=== PATIENT | male | born 1965 | race Two or more races ===

== ENCOUNTER 2016-08-20 09:44 | Emergency (ER) | payer MEDICAID ==
[~2016-08-20] VITALS: Ht 165.1 cm; Wt 71.7 kg
--- NOTE | 2016-08-20 09:50 | NUR ---
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 NOTED COMPLAINING OF EXTREME PAIN. SEEN BY MD FOR EVAL. IV ACCESS STARTED. PT MEDICATED ORDERED. VSS. SAFETY AND COMFORT MEASURES PROVIDED. WILL MONITOR.
[2016-08-20] MEDS ORDERED: ONDANSETRON HCL/PF 4 MG/2 ML VIAL ONE (09:54)
[2016-08-20] MEDS ORDERED: IV NS 0.9% 1,000 ML ONE (09:54)
[2016-08-20] MEDS ORDERED: HYDROMORPHONE 1 MG/1 ML DISP.SYRIN ONE ×2 (09:54→10:13)
[2016-08-20] MEDS ORDERED: IV SET PRIMARY PUMP SET 1 EA INFUS.SET MC ONE (09:54)
[2016-08-20 10:00] LABS: BASOPHILS % (AUTO) 0.5 % (0.0-2.0); EOSINOPHILS # (AUTO) 0.5 /CMM (0.0-0.7); EOSINOPHILS % (AUTO) 5.7 % (0.0-6.0); HEMATOCRIT 52 % (39-51); HEMOGLOBIN 17.2 g/dL (13.5-17.5); LYMPHOCYTES # (AUTO) 2.5 /CMM (0.8-4.8); LYMPHOCYTES % (AUTO) 29.9 % (20.0-44.0); MEAN CORPUSCULAR HEMOGLOBIN 29 PG (26.0-33.0); MEAN CORPUSCULAR HGB CONC 33 g/dl (31.0-36.0); MEAN CORPUSCULAR VOLUME 87 fL (80-96); MONOCYTES # (AUTO) 0.5 /CMM (0.1-1.30); NEUTROPHILS # (AUTO) 4.8 /CMM (1.8-8.9); NEUTROPHILS % (AUTO) 57.9 % (43.0-81.0); PLATELET COUNT (AUTO) 213 /CMM (150-450); RDW COEFFICIENT OF VARIATION 13.6 (11.5-15.0); RED BLOOD CELL COUNT(AUTO) 5.93 MIL/uL (4.5-6.0); WHITE BLOOD COUNT (AUTO) 8.3 K/uL (4.3-11.0)
[2016-08-20] MEDS ORDERED: IV NS 0.9% 1,000 ML BAG IV ONE (10:00)
[2016-08-20] MEDS ORDERED: HYDROMORPHONE INJ 2 MG/ML DISP.SYRIN IV ONE (10:00)
[2016-08-20] MEDS ORDERED: ONDANSETRON HCL/PF 4 MG/2 ML VIAL IVP ONE (10:00)
[2016-08-20 10:07] LABS: CALCIUM, SERUM 9.1 mg/dL (8.5-10.1); CREATININE 1.1 mg/dL (0.6-1.3); POTASSIUM 3.6 mmol/L (3.5-5.1)
[2016-08-20 10:13] LABS: BILIRUBIN,DIRECT 0.1 mg/dL (0.0-0.2); BILIRUBIN,TOTAL 0.6 mg/dL (0.2-1.0); TOTAL PROTEIN, SERUM 7.9 g/dL (6.4-8.2)
--- NOTE | 2016-08-20 10:25 | NUR ---
WATSON GAITAN AT BS.
[2016-08-20] MEDS ORDERED: HYDROMORPHONE 1 MG/1 ML DISP.SYRIN IV ONE (10:30)
[2016-08-20] MEDS ORDERED: KETOROLAC TROMETHAMINE INJ 30 MG/ML VIAL ONE (10:47)
[2016-08-20] MEDS ORDERED: KETOROLAC TROMETHAMINE INJ 30 MG/ML VIAL IV ONE (11:00)
[2016-08-20 12:13] VITALS: BP 106/105
--- NOTE | 2016-08-20 12:13 | NUR ---
Patient discharged to home in stable condition. Written and verbal after care instructions given. Patient verbalizes understanding of instruction.
== END 2016-08-20 12:14 | disposition home or self-care (01) ==
LOC: ER 09:51
DX: N20.1 Calculus of ureter (principal); N23 Unspecified renal colic; R10.11 Right upper quadrant pain
CPT/HCPCS: 36415; 71010; 74176; 76705; 80048; 80076; 83690; 85025; 93005; 96361; 96374; 96375; 99285; A4606; J1170 ×2; J1885; J2405; J7030; Z7610

== ENCOUNTER 2016-10-13 06:33 | Emergency (ER) | payer MEDICAID ==
[~2016-10-13] VITALS: Ht 167.6 cm; Wt 68.0 kg
--- NOTE | 2016-10-13 06:40 | NUR ---
TO BED 7 A 50 YO MALE BIB , PT C/O RIGHT FLANK PAIN SINCE YESTERDAY, WORSE NOW. PATIENT WITH HISTORY OF KIDNEY STONES. VSS. AFEBRILE. GOWNED. INITIATED COMFORT MEASURES. AWAITING FOR ER MD FERRIS.
--- NOTE | 2016-10-13 06:49 | NUR ---
DR VILLASENOR AT BEDSIDE FOR EVAL.
[2016-10-13] MEDS ORDERED: IV NS 0.9% 1,000 ML ONE (06:56)
[2016-10-13] MEDS ORDERED: KETOROLAC TROMETHAMINE INJ 30 MG/ML VIAL ONE (06:56)
[2016-10-13] MEDS ORDERED: ONDANSETRON HCL/PF 4 MG/2 ML VIAL ONE (06:56)
[2016-10-13] MEDS ORDERED: IV SET PRIMARY 1 EA INFUS.SET MC ONE (06:56)
[2016-10-13] MEDS ORDERED: IV NS 0.9% 1,000 ML BAG IV ONE (07:00)
[2016-10-13] MEDS ORDERED: ONDANSETRON HCL/PF 4 MG/2 ML VIAL IVP ONE (07:00)
[2016-10-13] MEDS ORDERED: KETOROLAC TROMETHAMINE INJ 30 MG/ML VIAL IV ONE (07:00)
--- NOTE | 2016-10-13 07:00 | NUR ---
STARTED A SALINE LOCK ON THE LAC G18.
--- NOTE | 2016-10-13 07:04 | NUR ---
Medicated patient per Dr Amor's orders.
--- NOTE | 2016-10-13 07:07 | NUR ---
CALLED LAB FOR CHANNEL SALES DIRECTOR.
--- NOTE | 2016-10-13 07:15 | NUR ---
Report given to Kj MALDONADO for damion.
[2016-10-13 07:24] LABS: APPEARANCE,URINE CLEAR (CLEAR); BILIRUBIN,URINE NEGATIVE (NEGATIVE); BLOOD, URINE 1+ Ery/uL (NEGATIVE); COLOR,URINE YELLOW (YELLOW); KETONES,URINE NEGATIVE (NEGATIVE); LEUKOCYTE ESTERASE ,URINE NEGATIVE (NEGATIVE); NITRITE, URINE NEGATIVE (NEGATIVE); PROTEIN,URINE NEGATIVE (NEGATIVE); UGLUCOSE NEGATIVE (NEGATIVE); UROBILINOGEN,URINE 0.2 EU/dL (0.2)
--- NOTE | 2016-10-13 07:33 | NUR ---
CONTACTED RADIOLOGY TO [facility] FOR THE SECOND TIME.
[2016-10-13 07:37] LABS: BACTERIA,URINE None seen /HPF (None Seen); SQUAMOUS EPITHELIAL CELL,UR None Seen /HPF (None Seen); WBC,URINE NONE SEEN /HPF (0-3)
--- NOTE | 2016-10-13 09:51 | NUR ---
Patient discharged to home in stable condition. Written and verbal after care instructions given. Patient verbalizes understanding of instruction. IV removed. Catheter intact and site benign. Pressure and 4x4 applied to site. No bleeding noted. RX PROVIDED WITH VERBAL CONFIRMATION OF UNDERSTANDING. WILL FOLLOW UP WITH FAMILY.
[2016-10-13 10:33] VITALS: BP 135/81
== END 2016-10-13 10:35 | disposition home or self-care (01) ==
LOC: ER 06:34
DX: N23 Unspecified renal colic (principal); Z87.442 Personal history of urinary calculi
CPT/HCPCS: 76770-TC; 81000-TC; A4606; J1885; J2405; J7030; Z7610

== ENCOUNTER 2018-05-07 17:21 | Emergency (ER) | payer SELFPAY ==
[~2018-05-07] VITALS: Ht 162.6 cm; Wt 63.5 kg
[2018-05-07 17:21] VITALS: BP 135/86
--- NOTE | 2018-05-07 18:16 | NUR ---
URINE COLLECTED AND SENT TO LAB
[2018-05-07 18:24] LABS: APPEARANCE,URINE Slightly Cloudy (CLEAR); BILIRUBIN,URINE Negative (NEGATIVE); BLOOD, URINE Moderate Ery/uL (NEGATIVE); COLOR,URINE Yellow (YELLOW); KETONES,URINE Negative (NEGATIVE); LEUKOCYTE ESTERASE ,URINE Large (NEGATIVE); NITRITE, URINE Negative (NEGATIVE); PROTEIN,URINE Negative (NEGATIVE); UGLUCOSE Negative (NEGATIVE)
[2018-05-07 18:35] LABS: WBC,URINE TOO NUMEROUS TO COUN /HPF (0-3)
[2018-05-07 18:36] LABS: BACTERIA,URINE Few /HPF (None Seen); SQUAMOUS EPITHELIAL CELL,UR Few /HPF (None Seen)
== END 2018-05-07 18:59 | disposition home or self-care (01) ==
LOC: ER 17:22
DX: N39.0 Urinary tract infection, site not specified (principal); Z87.442 Personal history of urinary calculi
CPT/HCPCS: 81000-TC; 87086-TC; 87186-TC; 87491; 87591